=== PATIENT | male | born 1995 | race Caucasian/White ===

== ENCOUNTER 2016-06-18 19:56 | Emergency (ER) | payer SELFPAY ==
[~2016-06-18] VITALS: Ht 170.2 cm; Wt 70.0 kg
[~2016-06-18 19:56] MED LIST: ACET-784 PO
[2016-06-18 21:58] VITALS: BP 159/81
[2016-06-18] MEDS ORDERED: LORazepam 2 MG TABLET PO ONE (22:00)
== END 2016-06-18 22:40 | disposition home or self-care (01) ==
LOC: EMS 19:57
DX: F41.9 Anxiety disorder, unspecified (principal); F15.10 Other stimulant abuse, uncomplicated
CPT/HCPCS: 93005; 99283